=== PATIENT | female | born 1960 | race Caucasian/White ===

== ENCOUNTER → 2019-11-13 07:44 | Outpatient (CLI) | payer OTHER, SELFPAY ==
--- NOTE | ~2019-11-13 | US_ITS ---
EXAMINATION: US right upper quadrant DATE: 11/13/2019 08:17 INDICATION: Right upper quadrant abdominal pain. TECHNIQUE: Multiple grayscale and Doppler ultrasound images of the abdomen were obtained. COMPARISON: None FINDINGS: The visualized portions of the head and body of the pancreas are normal. There is diffuse h epatic steatosis. There is normal flow in main portal vein. The gallbladder is normal in size and con tains sludge. No gallstones or gallbladder wall thickening. There was no sonographic Staples sign. The common duct is normal and measures 6 mm. IMPRESSION: 1. Gallbladder sludge. No evidence of acute cholecystitis. 2. Diffuse hepatic steatosis. Reviewed, dictated and finalized at location A.
== END ==
PROVIDERS: PCP Family Medicine; Visit Provider Physician Assistant
DX: R10.9 Unspecified abdominal pain (principal); K83.9 Disease of biliary tract, unspecified; K76.0 Fatty (change of) liver, not elsewhere classified
CPT/HCPCS: 76705

== ENCOUNTER → 2020-01-11 13:19 | Outpatient (CLI) | payer OTHER, SELFPAY ==
--- NOTE | ~2020-01-11 | CT_ITS ---
EXAMINATION: CT abdomen pelvis w con EXAM DATE: 01/11/2020 14:05 INDICATION: Hypertension. Right upper quadrant pain. TECHNIQUE: Spiral CT of the abdomen and pelvis was performed following intravenous injection of 100 m L Omnipaque 350. Axial, coronal and sagittal images were reviewed. The dose-length product (DLP) fo r this examination was 889.54 mGy-cm. The exposure was tailored according to patient size (auto mA e xposure control), and iterative reconstruction (ASIR) was used as additional dose reduction technique . There is no prior study for comparison. FINDINGS: There is hepatic steatosis without suspicious focal lesion identified. Spleen, adrenal glan ds, pancreas are unremarkable. Gallbladder is unremarkable. No biliary obstruction. Portal and spl enic veins are patent. Kidneys enhance symmetrically. There is no hydronephrosis. The uterus is u nremarkable. The bladder is unremarkable. There is no retroperitoneal or pelvic lymphadenopathy. There is moderate scattered arteriosclerotic disease. The appendix is normal. Gastric banding procedure. There is small gastroesophageal hiatal hernia. Th ere is expected amount of colonic stool. No free intraperitoneal gas. The heart is normal in size . There are no pericardial or pleural effusions. The lung bases are unremarkable. There are no ost eoblastic or osteolytic lesions identified. Moderate thoracic dextroscoliosis. IMPRESSION: 1. No acute intra-abdominal findings. 2. Gastric banding. Small hiatal hernia. 3. Hepatic steatosis. Reviewed, dictated and finalized at location B.
[2020-01-11 13:35] LABS: Estimated Glomerular Filt Rate > 60
== END ==
PROVIDERS: PCP Family Medicine; Visit Provider Physician Assistant
DX: R10.84 Generalized abdominal pain (principal); K76.0 Fatty (change of) liver, not elsewhere classified; K44.9 Diaphragmatic hernia without obstruction or gangrene
CPT/HCPCS: 74177; Q9967

== ENCOUNTER → 2020-10-08 10:02 | Outpatient (CLI) | payer OTHER, SELFPAY ==
--- NOTE | ~2020-10-08 | XR_ITS ---
EXAMINATION: XR hand BI arthritis min 3V DATE: 10/08/2020 10:34 INDICATION: Arthralgia. Pain in the hands. TECHNIQUE: 4 views of right hand and 4 views of left hand on 7 radiographs were obtained. COMPARISON: None. FINDINGS: RIGHT HAND: Bone alignment is normal. No fracture. There is mild osteoarthritis of triscaphe joint, f irst carpometacarpal joint, and most of the metacarpophalangeal joints and interphalangeal joints. LEFT HAND: Bone alignment is normal. No fracture. There is mild osteoarthritis of triscaphe joint, th ird metacarpophalangeal joint, and most of the interphalangeal joints. IMPRESSION: 1. Mild polyarticular osteoarthritis. Reviewed, dictated and finalized at location A.
--- NOTE | ~2020-10-08 | XR_ITS ---
XR knee LT 3V 10/08/2020 10:34 Indication: Left knee pain Procedure: 3 views left knee Comparison: No prior studies for comparison. Findings: No fracture, subluxation or dislocation. No significant joint effusion. No foreign bodies. No focal soft tissue abnormality. There is anatomic alignment. Impression: 1: No significant bone or joint abnormality. Reviewed, dictated and finalized at location B. Impression: 1: No significant bone or joint abnormality.
== END ==
PROVIDERS: PCP Family Medicine; Visit Provider Internal Medicine
DX: M25.50 Pain in unspecified joint (principal); M79.641 Pain in right hand; M79.642 Pain in left hand; M19.042 Primary osteoarthritis, left hand; M19.041 Primary osteoarthritis, right hand
CPT/HCPCS: 73130; 73562

== ENCOUNTER → 2021-02-16 12:09 | Outpatient (CLI) | payer OTHER, SELFPAY ==
--- NOTE | ~2021-02-16 | MM_ITS ---
EXAMINATION: MM screening sheri BI w yue HISTORY: Screening TECHNIQUE: Craniocaudal and mediolateral oblique 3-D tomosynthesis images were obtained and synthetic 2-D images were generated. CAD analysis was submitted and interpreted. COMPARISON: Comparison to multiple prior studies sequentially, with oldest reviewed study dated 08/02. BREAST PARENCHYMAL COMPOSITION: There are scattered areas of fibroglandular density. FINDINGS: There is no evidence of suspicious mass, calcification, or architectural distortion to sugg est malignancy in either breast. There has been no suspicious interval change. IMPRESSION: 1. No mammographic evidence of malignancy. 2. Recommend routine screening mammography in one year. BI-RADS Category 1: Negative Reviewed, dictated and finalized at location A.
== END ==
PROVIDERS: Visit Provider Nurse Practitioner
DX: Z12.31 Encounter for screening mammogram for malignant neoplasm of breast (principal)
CPT/HCPCS: 77063; 77067

== ENCOUNTER → 2021-06-16 13:24 | Outpatient (CLI) | payer OTHER, SELFPAY ==
--- NOTE | ~2021-06-16 | US_ITS ---
EXAMINATION: US pelvic complete DATE: 06/16/2021 13:46 INDICATION: Postmenopausal bleeding Comparison:No prior studies for comparison. TECHNIQUE: Multiple transabdominal sonographic images of the pelvis performed. FINDINGS: The uterus measures 6.1 x 2.3 x 3.7 cm. The endometrial complex measures 5 mm. The ovaries are not visualized, likely atrophic. There is no free fluid in the pelvis. There are no abnormal masses seen on either side. IMPRESSION: 1. Thickened endomtrial complex. The differential diagnosis includes endometrial hyperplasia, polyp a nd carcinoma. Biopsy is recommended. Reviewed, dictated and finalized at location A. [facility] IMPRESSION: 1. Thickened endomtrial complex. The differential diagnosis includes endometria l hyperplasia, polyp and carcinoma. Biopsy is recommended.
== END ==
PROVIDERS: Visit Provider Nurse Practitioner
DX: N95.0 Postmenopausal bleeding (principal); R93.89 Abnormal findings on diagnostic imaging of other specified body structures
CPT/HCPCS: 76856

== ENCOUNTER → 2022-07-21 12:43 | Outpatient (CLI) | payer OTHER, SELFPAY ==
--- NOTE | ~2022-07-21 | MM_ITS ---
EXAMINATION: MM screening sheri BI w yue HISTORY: Screening mammogram TECHNIQUE: Craniocaudal and mediolateral oblique 3-D tomosynthesis images were obtained and synthetic 2-D images were generated. CAD analysis was submitted and interpreted. COMPARISON: 02/16/2021, 05/26/2018, 02/03/2015 bilateral screening mammogram examinations BREAST PARENCHYMAL COMPOSITION: The breasts are almost entirely fatty. FINDINGS: There is no evidence of suspicious mass, calcification, or architectural distortion to sugg est malignancy in either breast. There has been no suspicious interval change. IMPRESSION: 1. No mammographic evidence of malignancy. 2. Recommend routine screening mammography in one year. BI-RADS Category 1: Negative Reviewed, dictated and finalized at location A.
== END ==
PROVIDERS: PCP Nurse Practitioner Family; Visit Provider Nurse Practitioner Family
DX: Z12.31 Encounter for screening mammogram for malignant neoplasm of breast (principal)
CPT/HCPCS: 77063; 77067

== ENCOUNTER 2023-11-07 12:46 | Outpatient (CLI) | payer OTHER, SELFPAY ==
--- NOTE | ~2023-11-07 | MM_ITS ---
EXAMINATION: MM screening sheri BI w yue HISTORY: Screening TECHNIQUE: Craniocaudal and mediolateral oblique 3-D tomosynthesis images were obtained and synthetic 2-D images were generated. CAD analysis was submitted and interpreted. COMPARISON: Comparison to multiple prior studies sequentially, with oldest reviewed study dated 01/16. BREAST PARENCHYMAL COMPOSITION: Not dense: There are scattered areas of fibroglandular density. FINDINGS: There is no evidence of suspicious mass, calcification, or architectural distortion to sugg est malignancy in either breast. There has been no suspicious interval change. IMPRESSION: 1. No mammographic evidence of malignancy. 2. Recommend routine screening mammography in one year. BI-RADS Category 1: Negative Reviewed, dictated and finalized at location B.
== END 2023-11-07 12:47 ==
LOC: MICIMG 12:47
PROVIDERS: PCP Nurse Practitioner Family; Visit Provider Nurse Practitioner Family
DX: Z12.31 Encounter for screening mammogram for malignant neoplasm of breast (principal)
CPT/HCPCS: 77063; 77067

== ENCOUNTER 2025-02-14 07:46 | Outpatient (CLI) | payer OTHER, SELFPAY ==
--- NOTE | ~2025-02-14 | MM_ITS ---
EXAMINATION: MM screening [facility] BI w yue HISTORY: Screening TECHNIQUE: Craniocaudal and mediolateral oblique 3-D tomosynthesis images were obtained and synthetic 2-D images were generated. CAD analysis was submitted and interpreted. COMPARISON: Comparison to multiple prior studies sequentially, with oldest reviewed study dated 05/26/2018. BREAST PARENCHYMAL COMPOSITION: Not Dense: The breasts are almost entirely fatty. FINDINGS: There is no evidence of suspicious mass, calcification, or architectural distortion to suggest malignancy in either breast. There has been no suspicious interval change. IMPRESSION: 1. No mammographic evidence of malignancy. 2. Recommend routine screening mammography in one year. BI-RADS Category 1: Negative Reviewed, dictated and finalized at location C.
--- OUTSIDE RECORDS SUMMARY | 2025-02-14 07:53 | XMS_ITS | Clinical Summary ---
Author Organization [facility] Address [address] [place] [address] Care Team Providers Care Wire Frame Maker Name Role Phone Rashida Brannon MD Primary Care Provider [phone] Source Comments [facility],non-owned Affiliates and Associated Physician Practices is amultiple site organization consisting of ambulatory clinics and hospital sitesin [place], [place]. This disclosure is being madepursuant to the Care Everywhere program and may not contain all information available regarding this patient. Last updated 18.[facility] Health Encounters Date Type Department Care Team Description 01/16/2025 Travel from Last 3 Months Social History Tobacco Use Types Packs/Day Years Used Date Smoking Tobacco: Never Assessed Comments Unknown Sex and Gender Information Value Date Recorded Sex Assigned at Not on file Legal Sex Female 6:29 AM [employer] Gender Identity Not on file Sexual Orientation Not on file Plan of Treatment Upcoming Encounters Date Type Department Care Team (Late st Contact Info) Description 02/22/2025 2:30 PM [employer] Office Visit [facility] - Cardiology [address] [facility], [facility] [address] [place] [address] Anastasiia Kahn MD [address] [place] [address] Health Maintenance Due Date Last Done Comments COLOGUARD (AGES 45-75) - COL ON CA SCREENING 1962 COLON MONITORING 1962 COLONOSCOPY - COLON CA SCREENING 1962 CT COLONOGRAPHY - COLON CA SCREENING 1962 Colorectal Cancer Screening 1962 FIT - COLON CA SCREENING 1962 FLEX SIG - COLON CA SCREENING 1962 LIPID TESTING 1962 MAMMOGRAM 1962 HIV SCREENING 1977 HEPATITIS C SCREENING 05/08/1980 DTAP/TDAP/TD VACCINES (1 - Tdap) 1981 PAP SMEAR 1983 PNEUMOCOCCAL VACCINE 50+ (1 of 1 - PCV) 2012 ZOSTER VACCINE (1 of 2) 2012 DEPRESSION SCREENING 04/18/2024 COVID-19 VACCINE (1 - 2023-2 5 season) 2024 INFLUENZA VACCINE (#1) 2024 Respiratory Syncytial Virus (RSV) Vaccine Pt: or over 60 yrs (1 - 1-dose 75+ series) 2037 HEPATITIS B VACCINE Aged Out No longe r eligible based on patient's age to complete this topic HIB VACCINE Aged Out No longer eligi ble based on patient's age to complete this topic HPV VACCINE Aged Out No longer eligi ble based on patient's age to complete this topic MENINGOCOCCAL (Group B) VACC INE SHARED DECISION-MAKING Aged Out No longer eligibl e based on patient's age to complete this topic MENINGOCOCCAL GROUPS A/C/Y/W VACCINE Aged Out No longer eligible b ased on patient's age to complete this topic Insurance [facility] Care Teams Wire Frame Maker Relationship Specialty Start Date End Date Rashida Brannon MD [address] [place] [address] PCP - General 08/19/20
--- OUTSIDE RECORDS SUMMARY | 2025-02-14 07:53 | XMS_ITS | Clinical Summary ---
Author Organization [facility] Address [address] [place] [address] Care Team Providers Care Special Education Assistant Name Role Phone Cierra Pedersen [facility] Primary Care Provider + Allergies No known active allergies Medications metFORMIN (GLUCOPHAGE) 1000 MG tablet Take 1 tablet (1,000 mg total) by mouth 2 (two) times daily. Active MOUNJARO 7.5 MG/0.5ML injection Inject 7.5 mg into the skin once a week. Fridays 5 Active pravastatin (PRAVACHOL) 40 MG tablet Take 1 tablet (40 mg total) by mouth daily. 5 Active lisinopril-hydr oCHLOROthiazide (ZESTORETIC) 10-12.5 MG tablet Take 1 tablet by mouth daily. Active tamsulosin (FLOMAX) 0.4 MG Cap Take 1 capsule (0.4 mg total) by mouth daily for 7 days. Continue until stent removal 7 capsule 5 02/18/20 25 Active oxyCODONE immediate release (ROXICODONE) 5 MG immediate release tabletIndicatio ns:Acute Pain < 7 Day Supply Take 0.5 tablets (2.5 mg total) by mouth every 8 (eight) hours as needed for Pain. Indications: Acute Pain < 7 Day Supply May take 0.5 tablet for moderate pain or one full tablet for severe pain every 8 hours as needed 8 tablet 5 02/11/20 Discontinue d(Stop Taking at Discharge) cephALEXin (KEFLEX) 500 MG capsule Take 1 capsule (500 mg total) by mouth 2 (two) times daily for 3 days. 6 capsule 5 10/29/20 25 Active Problems Problem Noted Date Diagnosed Date Ureterolithiasis 02/09/2025 Ureteric stone 02/08/2025 Ureteral stone with hydronephrosis 02/08/2025 Encounters Date Type Department Care Team Description 02/09/2025 11:32 AM CDT Anesthesia Event [place] [address] Jose Castañeda MD 02/09/2025 11:30 AM CDT - 02/09/2025 12:38 PM CDT Surgery [place] [address] Alina Roman MD CYSTOSCOPY, RETROGRADE PYELOGRAM, LEFT URETERAL STENT INSERTION, URETEROSCOPY AND LASER LITHOTRIPSY 02/08/2025 5:16 PM CDT - 02/10/2025 10:54 AM CDT Hospital Encounter [facility] [address] [place] [address] Geneva Hilliard, FAMILY PROTECTION SPECIALIST Christiano Cheatham MD Flank Pain Discharge Disposition: Home or Self Care (Routine Discharge) 02/08/2025 Travel from Last 3 Months Social History Tobacco Use Types Packs/Day Years Used Date Smoking Tobacco: Never Smokeless Tobacco: Never Tobacco Cessation:Counseling Given: Not Answered Humiliation, Afraid, Rape, and Kick questionnair e Answer Date Recorded Within the last year, have y ou been afraid of your partner or ex-partner? No 02/08/2025 Within the last year, have y ou been humiliated or emotionally abused in other ways by your partner or ex-partner? No Within the last year, have y ou been kicked, hit, slapped, or otherwise physically hurt by your partner or ex-partner? No 02/08/2025 Within the last year, have y ou been raped or forced to have any kind of sexual activity by your partner or ex-partner? No 02/08/2025 Overall Financial Resource Strain (CARDIA) Answe r Date Recorded How hard is it for you to pa y for the very basics like food, housing, medical care, and heating? Not very hard 02/08/2025 Hunger Vital Sign Answer Date Recorded Within the past 12 months, y ou worried that your food would run out before you got the money to buy more. Never true 02/09/20 25 Within the past 12 months, t he food you bought just didn't last and you didn't have money to get more. Never true 02/08/2025 PRAPARE - Transportation Answer Date Re corded In the past 12 months, has l ack of transportation kept you from medical appointments or from getting medications? No 01/17 In the past 12 months, has l ack of transportation kept you from meetings, work, or from getting things needed for daily living? No 02/08/2025 Housing Stability Vital Sign Answer [place] e Recorded In the last 12 months, was t here a time when you were not able to pay the mortgage or rent on time? No 02/08/2025 In the past 12 months, how m any times have you moved where you were living? 1 02/08/2025 At any time in the past 12 m [facility], were you homeless or living in a residential (including now)? No 02/08/2025 [facility] Utilities Answer Date Recorded In the past 12 months has th e electric, gas, oil, or water company threatened to shut off services in your home? No 02/08/2025 Comments Unknown Sex and Gender Information Value Date Recorded Sex Assigned at Female 02/08/2025 6:34 PM CDT Legal Sex Female 4:52 PM CDT Gender Identity Not on file Sexual Orientation Not on file Last Filed Vital Signs Vital Sign Reading Time Taken Comments Blood Pressure 132/59 02/10/2025 7:21 AM CDT Pulse 79 02/10/2025 7:21 AM CDT Temperature 36.7 C (98 F) 02/10/2025 7:21 AM CDT Respiratory Rate 18 02/10/2025 7:21 AM CDT Oxygen Saturation 99% 02/10/2025 7:21 AM CDT Inhaled Oxygen Concentration - - Weight 74.7 kg (164 lb 10.9 oz) 02/10/2025 5:47 AM CDT Height 152.4 cm (5') 02/08/2025 5:08 PM CDT Body Mass Index 32.16 02/08/2025 5:08 PM CDT Plan of Treatment Health Maintenance Due Date Last Done Comments Cervical Cancer Screening Pap Smear (Age 30 to 64) Every 3 Years 1962 Colorectal Cancer Screening Colonoscopy (10 Years) 1962 Annual Physical 1965 Hepatitis C 1980 Cervical Cancer Screening Pap with HPV Testing (Age 30 to 64) Every 5 Years 1992 Cervical Cancer Screening with HPV 1992 Mammogram Screening 2002 Zoster Vaccines (1 of 2) 2012 DTaP, Tdap and Td Vaccines (3 - Td or Tdap) 05/18/2034 05/18/2024, 09/10/2014 RSV Immunization or 60+ Years Completed 02/15/2023 Pneumococcal Vaccine: 50+ Years Completed 05/18/2024 COVID-19 Vaccine Completed 01/31/2025, 11/2023, 02/15/2023, Additional history exists Influenza Adult Completed 01/31/2025, 01/17, 02/14/2019, Additional history exists Hepatitis A Vaccines Aged Out No long er eligible based on patient's age to complete this topic Meningococcal B Vaccine Aged Out No l onger eligible based on patient's age to complete this topic Meningococcal Vaccine Aged Out No dl rebeka eligible based on patient's age to complete this topic RSV Immunizations Under 20 Months Aged Out No longer eligible based on patient's age to complete this topic Medical Devices Implanted Type Area Solderer Torch Device Identifier Shelf Expiration Date Model / Serial / Lot Stent Ureteral Danforth Sci Contour Vl 6fr X 22-30cm - [id number] Implanted:Qty : 1 on 02/09/2025 by Alina Roman MD at [facility] Stent Left: Ureter [employer] F [id number] 12/05/2026 [id number] / / [id number] Procedures Procedure Name Priority Date/Time Associated Diagnosis Comments CBC W/DIFF AUTOMATED Routine 02/10/2025 5:55 AM CDT BASIC METABOLIC PANEL Routine 02/10/2025 5:55 AM CDT SURG XR RETROGRD UROGRAPHY Routine 02/09/2025 12:31 PM CDT POCT GLUCOSE - DOCKED DEVICE Routine 02/09/2025 12:31 PM CDT CYSTOSCOPY STENT INSERTION/REMOVAL/RD NGE 02/09/2025 11:32 AM CDT Ureteral stone with hydronephrosis HEMOGLOBIN, GLYCOSYLATED Routine 02/09/2025 5:35 AM CDT CBC W/DIFF AUTOMATED Routine 02/09/2025 5:35 AM CDT BASIC METABOLIC PANEL Routine 02/09/2025 5:35 AM CDT POCT GLUCOSE - DOCKED DEVICE Routine 02/08/2025 9:[address] ABD+PEL WO CON STAT 02/08/2025 5:5 6 PM CDT LIPASE STAT 02/08/2025 5:26 PM CDT HC URINALYSIS AUTO W/O MICRO STAT 02/08/2025 5:26 PM CDT COMPREHENSIVE METABOLIC PANEL STAT 02/08/2025 5:26 PM CDT CBC W/DIFF AUTOMATED STAT 02/08/2025 5:26 PM CDT from Last 3 Months Results * (ABNORMAL) BASIC METABOLIC PANEL (02/10/2025 5:55 AM CDT) Only the most recent of2 resultswithin the time period is included. GLUCOSE 118(H) 70 - 99 MG/DL 02/10/2025 6:37 AM CDT [facility] BUN 19(H) 7 - 18 MG/DL 02/10/2025 6:37 AM CDT [facility] CREATININE S/P/B 0.84 0.55 - 1.02 MG/DL 02/10/2025 6:37 AM CDT [facility] SODIUM S/P/B 138 136 - 145 MMOL/L 02/10/2025 6:37 AM CDT [facility] POTASSIUM S/P/B 4.2 3.5 - 5.1 MMOL/L 02/10/2025 6:37 AM CDT [facility] CHLORIDE S/P/B 109 97 - 115 MMOL/L 02/10/2025 6:37 AM CDT [facility] CO2 23.7 21 - 32 MMOL/L 02/10/2025 6:37 AM CDT [facility] CALCIUM S/P/B 8.8 8.5 - 10.1 MG/DL 02/10/2025 6:37 AM CDT [facility] ANION GAP 5.3 2 - 10 MMOL/L 02/10/2025 6:37 AM CDT [facility] BUN CREATININE RATIO 22.7 6 - 02/10/2025 6:37 AM CDT [facility] GFR ESTIMATE 79(L) >90 ML/MIN/1.7 3 M2 02/10/2025 6:37 AM CDT [facility] Comment: NOTE: eGFR is not calculated for patients <18 years of age or gender unknown. This is an estimated GFR calculation using the new CKD EPI creatinine equation without race and so does not require a correction factor for race. This estimated GFR should not be used for calculating drug doses. 02/10/2025 5:55 AM CDT us Marisol Jackman MD LABORATORY Final Resu lt [facility] [address] [place] [address], [place] [phone] * (ABNORMAL) CBC W/DIFF AUTOMATED (02/10/2025 5:55 AM CDT) Only the most recent of3 resultswithin the time period is included. WBC 11.76(H) 4.5 - 11.0 x10'3/uL 02/10/2025 6:20 AM CDT [facility] RBC 4.22 4.20 - 5.40 x10'6/uL 02/10/2025 6:20 AM CDT [facility] HGB 11.6(L) 12.0 - 16.0 G/DL 02/10/2025 6:20 AM CDT [facility] HCT 35.3(L) 38.0 - 48.0 % 02/10/2025 6:20 AM CDT [facility] MCV 83.6 81.0 - 99.0 FL 02/10/2025 6:20 AM CDT [facility] MCH 27.5 27.0 - 31.0 PG 02/10/2025 6:20 AM CDT [facility] MCHC 32.9 32.0 - 36.0 G/DL 02/10/2025 6:20 AM CDT [facility] RDW 12.2 11.5 - 14.5 % 02/10/2025 6:20 AM CDT [facility] PLT 325 130 - 400 x10'3/uL 02/10/2025 6:20 AM CDT [facility] MPV 9.2(L) 9.3 - 12.2 FL 02/10/2025 6:20 AM CDT [facility] DIFFERENTIAL TYPE AUTOMATED DIFFERENTIAL 02/10/2025 6:20 AM CDT [facility] NEUTROPHILS % 81.8 % 02/10/2025 6:20 AM CDT [facility] LYMPHOCYTES % 11.8 % 02/10/2025 6:20 AM CDT [facility] MONOCYTES % 5.3 % 02/10/2025 6:20 AM CDT [facility] EOSINOPHILS 0.2 % 02/10/2025 6:20 AM CDT [facility] BASOPHILS 0.4 % 02/10/2025 6:20 AM CDT [facility] IMMATURE GRANS % 0.5 % 02/11/20 6:20 AM CDT [facility] ABS. NEUTROPHILS 9.62(H) 1.80 - 7.70 x10'3/uL 02/10/2025 6:20 AM CDT [facility] ABS. LYMPHOCYTES 1.39 1.00 - 4.80 x10'3/uL 02/10/2025 6:20 AM CDT [facility] ABS. MONOCYTES 0.62 0.24 - 0.86 x10'3/uL 02/10/2025 6:20 AM CDT [facility] ABS. EOSINOPHILS 0.02(L) 0.04 - 0.36 x10'3/uL 02/10/2025 6:20 AM CDT [facility] ABS. BASOPHILS 0.05 0.01 - 0.08 x10'3/uL 02/10/2025 6:20 AM CDT [facility] ABS. IMMATURE GRANULOCYTES 0.06 0.00 - 0.49 x10'3/uL 02/10/2025 6:20 AM CDT [facility] 02/10/2025 5:55 AM CDT us Marisol Jackman MD LABORATORY Final Resu lt [facility] [address] [place] [address], * SURG XR RETROGRD UROGRAPHY (02/09/2025 12:31 PM CDT) Anatomical Region Laterality Modality Abdomen Radiographic Wanda ging 02/09/2025 11:3 6 PM CDT Impressions 02/09/2025 11:37 PM CDT Impression: Fluoroscopic views of left retrograde urography with stent placement obtained for intraoperative control purposes and evaluated postoperatively. Radiologist not present for procedure. Referred By: Interpreted By: Champ Prasad MD, 02/09/2025 11:36 PM Narrative 02/09/2025 11:37 PM [address]T [address] [address] Intraoperative fluoroscopic views of the retrograde urography Reason for Exam: intra op, abdominal pain Dose: Total Dose Area Product: 0.4585 (Gycm2). Technique: Intraoperative fluoroscopy control images obtained. Findings: Submitted images demonstrate cannulation of the left ureter with partial opacification of the left renal collecting system. The final 2 images demonstrate placement of a left ureteral stent. Procedure Note Champ Prasad MD - 02/09/[address] [address] Intraoperative fluoroscopic views of the retrograde urography Reason for Exam: intra op, abdominal pain Dose: Total Dose Area Product: 0.4585 (Gycm2). Technique: Intraoperative fluoroscopy control images obtained. Findings: Submitted images demonstrate cannulation of the left ureter withpartial opacification of the left renal collecting system. The final 2images demonstrate placement of a left ureteral stent. Impression: Fluoroscopic views of left retrograde urography with stent placementobtained for intraoperative control purposes and evaluatedpostoperatively. Radiologist not present for procedure. Referred By: Interpreted By: Champ Prasad MD, 02/09/2025 11:36 PM us Alina Roman MD IMAGES ONLY Final Result * (ABNORMAL) POCT glucose (02/09/2025 12:31 PM CDT) Only the most recent of2 resultswithin the time period is included. GLUCOSE POC 112(H) 70 - 99 mg/dL 02/09/2025 12:32 PM CDT [facility] 02/09/2025 12:3 1 PM CDT us Christiano Cheatham MD POCT ORDERABLES - DEVICE Tawnya l Result Performing Organization Address [facility] Co de Phone Number [facility] [address] [place] [address], * (ABNORMAL) HEMOGLOBIN, GLYCOSYLATED (02/09/2025 5:35 AM CDT) HGB A1C 6.3(H) <5.7 % 02/09/2025 1:37 PM CDT [facility] Comment: ADA GUIDELINES 2010 5.7 TO 6.4% INCREASED RISK OF DIABETES > OR = 6.5% CONSISTENT WITH DIABETES ESTIMATED AVG GLUCOSE 134 mg/dL 02/09/2025 1:37 PM CDT [facility] 02/09/2025 5:35 AM CDT us Varun Argueta DO LABORATORY Final Resul t Performing Organization Address City/[facility]/ZIP Co de Phone Number [facility] [address] [place] [address], * CT ABD+PEL WO CON (02/08/2025 5:56 PM CDT) Anatomical Region Laterality Modality Abdomen Computed Tomogra phy 02/08/2025 6:04 PM CDT Impressions 02/08/2025 6:13 PM CDT IMPRESSION: 1. Moderate left hydronephrosis secondary to an obstructing distal 7 mm left ureteric stone. Correlation for symptoms of left flank pain as opposed to right flank pain. 2. Multiple nonobstructing left renal stones measuring up to 4 mm. No right renal stones are identified 3. Cholelithiasis. 4. No CT evidence of bowel obstruction or acute appendicitis. 5. Diffuse hepatic steatosis. 6. Status post gastric band placement. 7. Nonspecific distal esophageal wall thickening. A follow-up nonemergent upper endoscopy could be considered for further and evaluation. Ordered By: GENEVA HILLIARD Interpreted By: Brionna Scherer MD, 02/08/2025 6:04 PM Narrative 02/08/2025 6:13 PM CDT [address] [address] PROCEDURE: CT ABD+PEL WO CON HISTORY: Right flank pain. TECHNIQUE: Helical CT of the abdomen and pelvis was performed without intravenous contrast. A dose lowering technique was used for this procedure, which may include, but is not limited to, dose reduction technique, automated exposure control, the use of iterative reconstruction, and ALARA (As Low As Reasonably Achievable) / Image Gently techniques. COMPARISON: None FINDINGS CT ABDOMEN/PELVIS: Lower thorax: The lung bases are clear. The heart size is normal. The distal esophagus demonstrates mild wall thickening which related to underdistention or mild esophagitis. A gastric band is present. Liver: The liver is normal in size. No intrahepatic mass is seen on this non- contrast exam. Diffuse hepatic steatosis Biliary tree: There is cholelithiasis. There is no biliary ductal dilatation. Spleen: The spleen is normal in size. Pancreas: The pancreas is normal in size. There are no pancreatic calcifications. The pancreatic duct is not dilated. Adrenal glands: The adrenal glands are normal in size and shape. Kidneys: Moderate left hydronephrosis secondary to an obstructing 7 mm distal left ureteric stone. There are nonobstructing left renal stones measuring up to 4 mm. No right renal stones are identified Lymph nodes: Abdomen: There is no abdominal adenopathy. Pelvis: There is no pelvic adenopathy. Vasculature: There is no abdominal aortic aneurysm. Atherosclerotic calcification is seen. Peritoneum/mesentery/omentum: There is no free fluid or free air. CT findings suggestive of mesenteric panniculitis. GI tract: There is no bowel obstruction. There is no abnormal bowel wall thickening to suggest acute inflammation. The appendix is normal Pelvic urogenital structures:The bladder is grossly unremarkable. The uterus is present. There is no adnexal mass. Body wall: There are degenerative changes in the spine. No aggressive osseous lesions identified. Gastric band reservoir is present within the left ventral abdominal wall. Limitations: Evaluation of the solid parenchymal organs and vasculature is limited due to lack of intravenous contrast. Cardenas: (S/I) = series number / image number Procedure Note Brionna Scherer MD - 02/08/[address] [address] PROCEDURE: CT ABD+PEL WO CON HISTORY: Right flank pain. TECHNIQUE: Helical CT of the abdomen and pelvis was performed withoutintravenous contrast. A dose lowering technique was used for this procedure, which may include,but is not limited to, dose reduction technique, automated exposurecontrol, the use of iterative reconstruction, and ALARA (As Low AsReasonably Achievable) / Image Gently techniques. COMPARISON: None FINDINGS CT ABDOMEN/PELVIS: Lower thorax: The lung bases are clear. The heart size is normal. Thedistal esophagus demonstrates mild wall thickening which related tounderdistention or mild esophagitis. A gastric band is present. Liver: The liver is normal in size. No intrahepatic mass is seen on thisnon- contrast exam. Diffuse hepatic steatosis Biliary tree: There is cholelithiasis. There is no biliary ductaldilatation. Spleen: The spleen is normal in size. Pancreas: The pancreas is normal in size. There are no pancreaticcalcifications. The pancreatic duct is not dilated. Adrenal glands: The adrenal glands are normal in size and shape. Kidneys: Moderate left hydronephrosis secondary to an obstructing 7 mmdistal left ureteric stone. There are nonobstructing left renal stonesmeasuring up to 4 mm. No right renal stones are identified Lymph nodes: Abdomen: There is no abdominal adenopathy. Pelvis: There is no pelvic adenopathy. Vasculature: There is no abdominal aortic aneurysm. Atheroscleroticcalcification is seen. Peritoneum/mesentery/omentum: There is no free fluid or free air. CTfindings suggestive of mesenteric panniculitis. GI tract: There is no bowel obstruction. There is no abnormal bowel wallthickening to suggest acute inflammation. The appendix is normal Pelvic urogenital structures:The bladder is grossly unremarkable. Theuterus is present. There is no adnexal mass. Body wall: There are degenerative changes in the spine. No aggressiveosseous lesions identified. Gastric band reservoir is present within theleft ventral abdominal wall. Limitations: Evaluation of the solid parenchymal organs and vasculature islimited due to lack of intravenous contrast. Cardenas: (S/I) = series number / image number IMPRESSION: 1. Moderate left hydronephrosis secondary to an obstructing distal 7 mmleft ureteric stone. Correlation for symptoms of left flank pain asopposed to right flank pain. 2. Multiple nonobstructing left renal stones measuring up to 4 mm. Noright renal stones are identified 3. Cholelithiasis. 4. No CT evidence of bowel obstruction or acute appendicitis. 5. Diffuse hepatic steatosis. 6. Status post gastric band placement. 7. Nonspecific distal esophageal wall thickening. A follow-up nonemergentupper endoscopy could be considered for further and evaluation. Ordered By: GENEVA HILLIARD Interpreted By: Brionna Scherer MD, 02/08/2025 6:04 PM Geneva Hilliard FAMILY PROTECTION SPECIALIST CT Final Resul t * (ABNORMAL) URINALYSIS (02/08/2025 5:26 PM CDT) SPECIMEN TYPE URINE CLEAN CATCH 02/08/2025 5:23 PM CDT [facility] COLOR (U) LIGHT YELLOW 02/08/2025 6:[address] [facility] TRANSPARENCY CLEAR 02/08/2025 6:[address] [facility] SPECIFIC GRAVITY (U) 1.010 1.001 - 1.030 02/08/2025 6:[address] [facility] U PH 5.0 5.0 - 9.0 02/08/2025 6:[address] [facility] LEUKOCYTES (U) 25(A) NEGATIVE 02/08/2025 6:[address] [facility] NITRITES NEGATIVE NEGATIVE 02/08/2025 6:[address] [facility] PROTEIN RANDOM (U) NEGATIVE <30 MG/DL 02/08/2025 6:[address] [facility] GLUCOSE (U) NORMAL NORMAL MG/DL 02/08/2025 6:[address] [facility] KETONES MG/DL (U) NEGATIVE NEGATIVE MG/DL 02/08/2025 6:[address] [facility] UROBILINOGEN NORMAL NORMAL MG/DL 02/08/2025 6:[address] [facility] BILIRUBIN (U) NEGATIVE NEGATIVE MG/DL 02/08/2025 6:[address] [facility] BLOOD (U) NEGATIVE NEGATIVE 02/08/2025 6:[address] [facility] WBC/HPF 1 <6 /HPF 02/08/2025 6:[address] [facility] RBC/HPF 2 <6 /HPF 02/08/2025 6:[address] [facility] SQUAMOUS EPITHELIALS RARE /HPF 02/08/2025 6:[address] [facility] URINE SPECIMEN OBTAINED BY CLEAN CATCH PROCEDURE / Unknown 02/08/2025 5:26 PM CDT Geneva M Matthew FAMILY PROTECTION SPECIALIST URINE ORDERABLES Final Resu lt [facility] [address] [place] [address], [place] [phone] * (ABNORMAL) COMPREHENSIVE METABOLIC PANEL (02/08/2025 5:26 PM CDT) [facility] GLUCOSE 129(H) 70 - 99 MG/DL 02/08/2025 5:59 PM CDT [facility] BUN 27(H) 7 - 18 MG/DL 02/08/2025 5:59 PM CDT [facility] CREATININE S/P/B 1.35(H) 0.55 - 1.02 MG/DL 02/08/2025 5:59 PM CDT [facility] SODIUM S/P/B 133(L) 136 - 145 MMOL/L 02/08/2025 5:59 PM CDT [facility] POTASSIUM S/P/B 4.2 3.5 - 5.1 MMOL/L 02/08/2025 5:59 PM CDT [facility] CHLORIDE S/P/B 101 97 - 115 MMOL/L 02/08/2025 5:59 PM CDT [facility] CO2 26.1 21 - 32 MMOL/L 02/08/2025 5:59 PM CDT [facility] CALCIUM S/P/B 9.6 8.5 - 10.1 MG/DL 02/08/2025 5:59 PM CDT [facility] BILIRUBIN TOTAL S/P/B 0.4 0.2 - 1.2 MG/DL 02/08/2025 5:59 PM CDT [facility] Comment: THIS ASSAY IS NOT RECOMMENDED FOR PATIENTS UNDERGOING TREATMENT WITH ELTROMBOPAG DUE TO THE POTENTIAL FOR FALSELY ELEVATED RESULTS. TOTAL PROTEIN S/P/B 8.4(H) 6.4 - 8.2 G/DL 02/08/2025 5:59 PM CDT [facility] ALBUMIN S/P/B 3.6 3.4 - 5.0 G/DL 02/08/2025 5:59 PM CDT [facility] AST 24 15 - 37 U/L 02/08/2025 5:59 PM CDT [facility] ALT 44 14 - 55 U/L 02/08/2025 5:59 PM CDT [facility] ALKALINE PHOSPHATASE S/P/B 105 50 - 136 U/L 02/08/2025 5:59 PM CDT [facility] ANION GAP 5.9 2 - 10 MMOL/L 02/08/2025 5:59 PM CDT [facility] BUN CREATININE RATIO 20.0 6 - 26 02/08/2025 5:59 PM CDT [facility] A/G RATIO 0.8(L) 1.0 - 2.0 RATIO 02/08/2025 5:59 PM CDT [facility] GFR ESTIMATE 44(L) >90 ML/MIN/1.7 3 M2 02/08/2025 5:59 PM CDT [facility] Comment: NOTE: eGFR is not calculated for patients <18 years of age or gender unknown. This is an estimated GFR calculation using the new CKD EPI creatinine equation without race and so does not require a correction factor for race. This estimated GFR should not be used for calculating drug doses. 02/08/2025 5:26 PM CDT us Geneva Hilliard FAMILY PROTECTION SPECIALIST LABORATORY Final Resul t [facility] [address] [place] [address], [place] [phone] * (ABNORMAL) LIPASE (02/08/2025 5:26 PM CDT) LIPASE 192(H) 13 - 75 UNITS/L 02/08/2025 5:59 PM CDT [facility] 02/08/2025 5:26 PM CDT us Geneva Hilliard FAMILY PROTECTION SPECIALIST LABORATORY Final Resul t [facility] [address] [place] [address], [place] [phone] from Last 3 Months Insurance Advance Directives * Full Code (Latest Code Status on File) Date Activated Date Inactivated Comments 02/08/2025 8:20 PM 02/10/2025 12:59 PM Care Teams Special Education Assistant Relationship Specialty Start Date End Date Cierra Pedersen, FAMILY PROTECTION SPECIALIST- [address] [place] [address] PCP - General Nurse Practitioner Family 02/08/25
--- OUTSIDE RECORDS SUMMARY | 2025-02-14 07:53 | XMS_ITS | Patient Health Record ---
Author Organization [employer] Address [address] [facility] [address] [place], [place] [id number] Care Team Providers Care Immunohematologist Name Role Phone AURY HERNANDEZ MD Primary Care Provider Jessica Harris Unavailable [phone] ALLERGIES No Known Allergies REASON FOR REFERRAL No Information MEDICATIONS Medication SIG (Take, Route, Frequency, Duration) Notes Start Date End Date Status lisinopril 10 mg 1 tab(s) orally once a day for 30 day(s) Active pravastatin 20 mg 1 tab(s) orally once a day for 30 day(s) Active Vitamin D3 2000 intl units as directed o rally once a day for 30 day(s) Active aspirin 81 mg 1 tab(s) chewed once a day for 30 day(s) Active metFORMIN 1000 mg 1 tab(s) orally 2 ti mes a day for 30 day(s) Active Probiotics orally as directed Active PROBLEMS Problem Type ICD Code Onset Dates Problem Status W/U Status Risk SNOMED Code Notes Problem Essential hypertension (I10) Active confirmed 85374121 Problem Other chronic pain (G89.29) Active confirmed 05548783 Problem Positive COY (antinuclear antibody) (R76.8) Active confirmed 042058894 Problem Inflammatory arthritis (M19.90) Active confirmed 6568380 Problem Seronegative inflammatory arthritis (M13.80) Active confirmed 723238425 PLAN OF TREATMENT Pending Test Test Name Order Date X ray : Hand left- outside order 021 X ray : Hand right- outside order 2020 X ray : Knee, left, 3 views- outside ord er 10/02/2020 Lab slip given 10/16/2020 Lab slip given 10/02/2020 -Xray slip given 10/02/2020 Insurance Providers Payer Name Payer Address Payer Phone Subscriber Number Group Number Insured Name Patient Relationship to Insured Coverage Start Date Coverage End Date [employer] [address] [place] [phone] [id number] [employer] Spouse - patient is the spouse of the insured 9 MEDICAL (GENERAL) HISTORY Medical History History ICD Code diabetes high blood pressure varicose veins pneumonia bronchitis bowel changes Surgical History Surgery Date(Month/Year) Carpal Tunnel surgery cyst removal ovary lap band plastic surgery skin removal
--- OUTSIDE RECORDS SUMMARY | 2025-02-14 07:53 | XMS_ITS | Clinical Summary ---
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 Name Role Phone Unavailable Primary Care Provider Unavailabl e Social History Tobacco Use Types Packs/Day Years Used Date Smoking Tobacco: Never Assessed Comments Unknown Sex and Gender Information Value Date Recorded Sex Assigned at Not on file Legal Sex Female 2:36 PM CDT Gender Identity Not on file Sexual Orientation Not on file Plan of Treatment Health Maintenance Due Date Last Done Comments Hepatitis C Virus (HCV) Screening 1962 TdaP Immunization 1962 Pap Smear 1983 Cervical Cancer Screening (CCS) 1992 HPV/Cotest 1992 Cologuard 2007 Colonoscopy 2007 Colorectal Cancer Screening 2007 Immunochemical Fecal Occult Blood 2007 Pneumococcal Immunization (5 0+ years) (1 of 1 - PCV) 2012 Zoster Immunization (1 of 2) 2012 Influenza Immunization (#1) 2024 SARS-COV-2 Immunization (2023- season) 2024 Respiratory Syncytial Virus (RSV) Immunization (Adult) (1 - 1-dose 75+ series) 2037 Hepatitis B Immunization Aged Out No longer eligible based on patient's age to complete this topic Human Papillomavirus (HPV) Immunization Aged Out No longer eligible b ased on patient's age to complete this topic Meningococcal Immunization (ACWY) Aged Out No longer eligible based on patient's age to complete this topic Rotavirus Immunization Aged Out No lo nger eligible based on patient's age to complete this topic Insurance [employer] on file
--- OUTSIDE RECORDS SUMMARY | 2025-02-14 07:53 | XMS_ITS | Clinical Summary ---
Author Organization [facility] Address [address] [place] [address] Care Team Providers Care Planer Feeder Name Role Phone Rashida Brannon MD Primary Care Provider [phone] Allergies No known active allergies Medications lisinopril-hydro CHLOROthiazide (ZESTORETIC) 10-12.5 mg per tabletIndication s:hypertension Take 1 tablet by mouth daily Active metFORMIN (GLUCOPHAGE) 1,000 mg tablet Take 1,000 mg by mouth 2 (two) times a day with meals Active lactobacillus combination no.4 3 billion cell capsule Take 1 capsule by mouth daily Active cholecalciferol (VITAMIN D-3) 5,000 unit capsule Take 2,000 Units by mouth daily Active pravastatin (PRAVACHOL) 20 mg tablet Take 20 mg by mouth daily Active aspirin 81 mg enteric coated tablet Take 81 mg by mouth daily Active Surgical History Surgery Date Site/Laterality Comments COLONOSCOPY LAPAROSCOPIC GASTRIC BANDING BREAST SURGERY REMOVAL OF FAT STOMACH SURGERY FOR REMOVAL OF FAT CARPAL TUNNEL RELEASE Bilateral LAPAROSCOPIC OVARIAN CYSTECTOMY Medical History Medical History Date Comments Hyperlipidemia Hypertension Type 2 diabetes mellitus Ovarian cyst Sleep apnea Polycystic ovarian syndrome Family History Medical History Relation Name Comments Bladder Cancer Father Alzheimer's disease Mother Relation Name Status Comments Father Mother Social History Tobacco Use Types Packs/Day Years Used Date Smoking Tobacco: Never AUDIT-C Answer Date Recorded Q1: How often do you have a drink containing alc ohol? 2-4 times a month 12/31/2020 Q2: How many drinks containi ng alcohol do you have on a typical day when you are drinking? 1 or 2 12/31/2020 Q3: How often do you have si x or more drinks on one occasion? 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 Gender Identity Not on file Sexual Orientation Not on file Obstetrics History Last Filed Vital Signs Vital Sign Reading Time Taken Comments Blood Pressure 136/92 01/13/2021 9:30 AM CDT Pulse 81 01/13/2021 9:30 AM CDT Temperature 36.8 C (98.2 F) 01/13/2021 9:20 AM CDT Respiratory Rate 20 01/13/2021 9:30 AM CDT Oxygen Saturation 97% 01/13/2021 9:30 AM CDT Inhaled Oxygen Concentration - - Weight 74.8 kg (164 lb 14.1 oz) 013 12:00 AM CDT Height 152.4 cm (5') 12/19/2012 5:41 PM CDT Body Mass Index 32.2 12/19/2012 5:41 PM CDT Plan of Treatment Not on file Medical Devices Implanted Type Area Pole Inspector Device Identifier Shelf Expiration Date Model / Serial / Lot Other - See Comments Other - see comments Left: Abdomen Description:Port from gastri c banding Insurance [facility] H[facility]/PPO Address: [address] [address] [place] [address] Care Teams Planer Feeder Relationship Specialty Start Date End Date Rashida Brannon MD PCP - General Family Medicine 01/01/21
== END 2025-02-14 07:47 | disposition home or self-care (01) ==
LOC: CHSIMG 07:47
PROVIDERS: PCP Nurse Practitioner Family; Visit Provider Nurse Practitioner Family
DX: Z12.31 Encounter for screening mammogram for malignant neoplasm of breast (principal)
CPT/HCPCS: 77063; 77067